=== PATIENT | female | born 1955 | race Caucasian/White ===

== ENCOUNTER 2017-07-07 07:48 | Day surgery (SDC) | payer OTHER ==
[~2017-07-07 07:48] MED LIST: PROVENTIL HFA 6.7GM INHALER; SOD CHLORIDE 0.9% 1,000 ML IV
[2017-07-07] MEDS ORDERED: SOD CHLORIDE 0.9% 1,000 ML IV (11:00)
[2017-07-07 11:02] LABS: ADD MAN DIFF? NO
[2017-07-07 11:04] LABS: WHITE BLOOD COUNT 7.1 10^3/ul (4.8-10.8)
[2017-07-07 11:04] LABS: BASOPHILS % 0.4 % (0.0-2.0); EOSINOPHILS # 0.2 10^3/ul (0.0-0.5); EOSINOPHILS % 2.8 % (0.0-7.0); HEMATOCRIT 43.3 % (37.0-47.0); HEMOGLOBIN 14.7 g/dl (12.0-16.0); LYMPHOCYTES # 2.9 10^3/ul (0.8-2.9); MEAN CORPUSCULAR HEMOGLOBIN 29.8 pg (29.0-33.0); MEAN CORPUSCULAR HGB CONC 33.9 g/dl (32.0-37.0); MEAN CORPUSCULAR VOLUME 87.8 fl (82.0-101.0); MEAN PLATELET VOLUME 10.4 fl (7.4-10.4); MONOCYTE # 0.4 10^3/ul (0.3-0.9); MONOCYTES % 5.2 % (0.0-11.0); NEUTROPHIL # 3.6 10^3/ul (1.6-7.5); NEUTROPHILS % 50.3 % (39.0-77.0); PLATELET COUNT 196 10^3/UL (140-415); RED BLOOD COUNT 4.93 10^6/ul (4.20-5.40); RED CELL DISTRIBUTION WIDTH 12.5 % (11.5-14.5)
[2017-07-07 11:22] LABS: ALANINE AMINOTRANSFERASE 29 IU/L (13-69); ALBUMIN/GLOBULIN RATIO 1.42; ALKALINE PHOSPHATASE 74 IU/L (42-121); ANION GAP 14 (8-16); ASPARTATE AMINO TRANSFERASE 26 IU/L (15-46); BILIRUBIN,INDIRECT 0.2 mg/dl (0-1.1); BILIRUBIN,TOTAL 0.2 mg/dl (0.2-1.3); CARBON DIOXIDE 23 mmol/L (21-31); CHLORIDE 110 mmol/L (97-110); GLUCOSE 103 mg/dl (70-220); TOTAL PROTEIN 6.8 g/dl (6.1-8.1)
[2017-07-07 11:23] LABS: BLOOD UREA NITROGEN 19 mg/dl (7-20); CALCIUM 9.3 mg/dl (8.4-10.2); CREATININE 0.61 mg/dl (0.44-1.00); POTASSIUM 4.2 mmol/L (3.5-5.1); SODIUM 143 mmol/L (135-144)
[2017-07-07 11:28] LABS: INR 0.94; PROTIME 12.7 Sec (11.9-14.9)
[2017-07-07] MEDS ORDERED: LIDOCAINE 1% (MPF) 30 ML INJ (12:29)
[2017-07-07] MEDS ORDERED: LIDOCAINE 2% (SDV) 5 ML INJ (12:44)
[2017-07-07] MEDS ORDERED: ROCURONIUM 50 MG INJ (12:44)
[2017-07-07] MEDS ORDERED: PROPOFOL 20 ML (12:44)
[2017-07-07] MEDS ORDERED: FENTAnyl 50 MCG/ML VIAL (12:44)
[2017-07-07] MEDS ORDERED: MIDAZOLAM 1 MG/ML 2 ML INJ (12:44)
[2017-07-07] MEDS ORDERED: KETOROLAC 30 MG INJ (13:03)
[2017-07-07] MEDS ORDERED: FAMOTIDINE 20 MG INJ (13:03)
[2017-07-07] MEDS ORDERED: DEXAMETHASONE 4 MG/ML 1 ML INJ (13:03)
[2017-07-07] MEDS ORDERED: ONDANSETRON 4 MG INJ (13:03)
[2017-07-07] MEDS ORDERED: CEFAZOLIN 1 GM INJ (13:03)
[2017-07-07] MEDS: BUPIVACAINE 0.25% (MPF) 30 ML INJ (13:16)
[2017-07-07] MEDS ORDERED: SUGAMMADEX SODIUM 200 MG/2 ML VIAL IV (13:39)
[2017-07-07] MEDS ORDERED: HYDROmorphONE (0.2 MG/ML) 10ML SYG IV (14:00)
[2017-07-07] MEDS ORDERED: ONDANSETRON 4 MG INJ IV (14:00)
[2017-07-07] MEDS ORDERED: KETOROLAC 30 MG INJ IV (14:00)
[2017-07-07] MEDS ORDERED: IBUPROFEN 600 MG TAB PO (14:00)
[2017-07-07] MEDS ORDERED: OXYCODONE/ACETAMINOPHEN (5/325) TAB PO (14:00)
[2017-07-07] MEDS: hydrALAzine 20 MG INJ IV ×2 (14:13→14:35)
[2017-07-07] MEDS: ONDANSETRON 4 MG INJ IV (14:13)
== END 2017-07-07 15:15 | disposition home or self-care (01) ==
LOC: SDS 07:48
DX: N60.91 Unspecified benign mammary dysplasia of right breast (principal); R00.1 Bradycardia, unspecified
CPT/HCPCS: 19125; 71045; 80053; 85025; 85610; 85730; 88307; 93005